=== PATIENT | male | born 1985 | race Caucasian/White ===

== ENCOUNTER 2018-06-04 12:42 | Emergency (ER) | payer OTHER ==
--- NOTE | 2018-06-04 14:07 | EDPHYS ---
Physician Documentation [facility] Name: Herson Owens Age: 33 yrs Sex: Male : 1985 Arrival Date: 06/04/2018 Time: 12:47 Bed 11 Private MD: ED Physician Javon Moreno HPI: 06/04 14:16 This 33 yrs old Male presents to ER via Ambulatory with complaints of Rash. snw 14:16 The patient's rash thought to be caused by Dermatitis. The rash is located on the body snw diffusely. The rash can be described as pt states he can't really see the rash but can feel it, extreme pruritis. Onset: The symptoms/episode began/occurred suddenly, 2 day(s) ago, and became worse and became persistent. Severity of symptoms: At their worst the symptoms were severe in the emergency department the symptoms are unchanged. Treatment given at home: none. The patient has not experienced similar symptoms in the past. The patient has not recently seen a physician. Historical: - Allergies: 12:50 No Known Allergies; aa5 - PMHx: 12:50 Anxiety; Hypertension; aa5 - PSHx: 12:50 right ankle; right leg with kike; right knee; aa5 - Immunization history:: Adult Immunizations unknown. - Social history:: Smoking status: Patient/guardian denies using tobacco. - Ebola Screening: : No symptoms or risks identified at this time. ROS: 14:16 Constitutional: Negative for fever, chills, and weight loss, Eyes: Negative for injury, snw pain, redness, and discharge, ENT: Negative for injury, pain, and discharge, Neck: Negative for injury, pain, and swelling, Cardiovascular: Negative for chest pain, palpitations, and edema, Respiratory: Negative for shortness of breath, cough, wheezing, and pleuritic chest pain, Abdomen/GI: Negative for abdominal pain, nausea, vomiting, diarrhea, and constipation, Back: Negative for injury and pain, : Negative for injury, bleeding, discharge, and swelling, MS/Extremity: Negative for injury and deformity, Neuro: Negative for headache, weakness, numbness, tingling, and seizure. 14:16 Skin: Positive for rash, of the generalized. Exam: 14:16 Constitutional: This is a well developed, well nourished patient who is awake, alert, snw and in no acute distress. Head/Face: Normocephalic, atraumatic. Eyes: Pupils equal round and reactive to light, extra-ocular motions intact. Lids and lashes normal. Conjunctiva and sclera are non-icteric and not injected. Cornea within normal limits. Periorbital areas with no swelling, redness, or edema. ENT: Nares patent. No nasal discharge, no septal abnormalities noted. Tympanic membranes are normal and external auditory canals are clear. Oropharynx with no redness, swelling, or masses, exudates, or evidence of obstruction, uvula midline. Mucous membranes moist. Neck: Trachea midline, no thyromegaly or masses palpated, and no cervical lymphadenopathy. Supple, full range of motion without nuchal rigidity, or vertebral point tenderness. No Meningismus. Chest/axilla: Normal chest wall appearance and motion. Nontender with no deformity. No lesions are appreciated. Cardiovascular: Regular rate and rhythm with a normal S1 and S2. No gallops, murmurs, or rubs. Normal PMI, no JVD. No pulse deficits. Respiratory: Lungs have equal breath sounds bilaterally, clear to auscultation and percussion. No rales, rhonchi or wheezes noted. No increased work of breathing, no retractions or nasal flaring. Abdomen/GI: Soft, non-tender, with normal bowel sounds. No distension or tympany. No guarding or rebound. No evidence of tenderness throughout. Back: No spinal tenderness. No costovertebral tenderness. Full range of motion. MS/ Extremity: Pulses equal, no cyanosis. Neurovascular intact. Full, normal range of motion. Neuro: Awake and alert, GCS 15, oriented to person, place, time, and situation. Cranial nerves II-XII grossly intact. Motor strength 5/5 in all extremities. Sensory grossly intact. Cerebellar exam normal. Normal gait. Psych: Awake, alert, with orientation to person, place and time. Behavior, mood, and affect are within normal limits. 14:16 Skin: Appearance: normal except for affected area, unable to see any skin abnormality except a few scattered insect bite appearing papules. Vital Signs: 12:50 BP 137 / 108; Pulse 93; Resp 18 S; Temp 98.6(TE); Pulse Ox 98% on R/A; Weight 117.93 kg aa5 (R); Height 5 ft. 8 in. (172.72 cm) (R); Pain 0/10; 12:50 Body Mass Index 39.53 (117.93 kg, 172.72 cm) aa5 MDM: 13:40 Patient medically screened. snw 14:20 Data reviewed: vital signs, nurses notes. Data interpreted: Pulse oximetry: on room air snw is 98 %. Interpretation: normal. Counseling: I had a detailed discussion with the patient and/or guardian regarding: the historical points, exam findings, and any diagnostic results supporting the discharge/admit diagnosis, the presence of at least one elevated blood pressure reading (>120/80) during this emergency department visit, the need for outpatient follow up, to return to the emergency department if symptoms worsen or persist or if there are any questions or concerns that arise at home. Special discussion: Based on the history and exam findings, there is no indication for further emergent testing or inpatient evaluation. I discussed with the patient/guardian the need to see the optical mechanic apprentice for further evaluation of the symptoms. I discussed with the patient/guardian the need to see the primary care provider for further evaluation of the symptoms. Administered Medications: 14:13 Drug: hydrOXYzine 50 mg Route: PO; iw Disposition: 15:35 Co-signature as Attending Physician, Javon Moreno MD I agree with the assessment and kdr plan of care. Disposition: 06/04/18 14:06 Discharged to Home. Impression: Irritant contact dermatitis. - Condition is Stable. - Discharge Instructions: Contact Dermatitis, Hypertension, Scabies, Adult. - Prescriptions for Elimite 5 % Topical Cream - apply 1 application by TOPICAL route one time Wash after 12 hours.; 60 gram. Pepcid 20 mg Oral Tablet - take 1 tablet by ORAL route every 12 hours for 10 days; 20 tablet. Zyrtec 10 mg Oral Tablet - take 1 tablet by ORAL route once daily As needed; 20 tablet. - Work release form, Medication Reconciliation Form, Thank You Letter, Antibiotic Education, Prescription Opioid Use form. - Follow up: Private Physician; When: 2 - 3 days; Reason: Recheck today's complaints, Continuance of care, Re-evaluation by your physician. Follow up: Emergency Department; When: As needed; Reason: Worsening of condition. Signatures: Javon Moreno MD MD kdr Therrien, Shelly, RADIOLOGY PRACTITIONER ASSISTANT-C RADIOLOGY PRACTITIONER ASSISTANT-Csnw Christin Yang, RN RN iw Ariela Parry, RN RN aa5 Corrections: (The following items were deleted from the chart) 14:22 14:06 06/04/2018 14:06 Discharged to Home. Impression: Irritant contact dermatitis. iw Condition is Stable. Forms are Medication Reconciliation Form, Thank You Letter, Antibiotic Education, Prescription Opioid Use. Follow up: Private Physician; When: 2 - 3 days; Reason: Recheck today's complaints, Continuance of care, Re-evaluation by your physician. Follow up: Emergency Department; When: As needed; Reason: Worsening of condition. snw
--- NOTE | 2018-06-04 14:07 | ER ---
Nurse's Notes [facility] Name: Herson Owens Age: 33 yrs Sex: Male : 1985 Arrival Date: 06/04/2018 Time: 12:47 Bed 11 Private MD: Diagnosis: Irritant contact dermatitis Presentation: 06/04 12:48 Presenting complaint: Patient states: rash that it's itchy to all four extremities that aa5 began 3 days ago. Transition of care: patient was not received from another setting of care. Onset of symptoms was May 2018. Risk Assessment: Do you want to hurt yourself or someone else? Patient reports no desire to harm self or others. Initial Sepsis Screen: Does the patient meet any 2 criteria? No. Patient's initial sepsis screen is negative. Does the patient have a suspected source of infection? No. Patient's initial sepsis screen is negative. Care prior to arrival: None. 12:48 Method Of Arrival: Ambulatory aa5 12:48 Acuity: LILLIAM 5 aa5 Historical: - Allergies: 12:50 No Known Allergies; aa5 - PMHx: 12:50 Anxiety; Hypertension; aa5 - PSHx: 12:50 right ankle; right leg with kike; right knee; aa5 - Immunization history:: Adult Immunizations unknown. - Social history:: Smoking status: Patient/guardian denies using tobacco. - Ebola Screening: : No symptoms or risks identified at this time. Screenin:20 Nutritional screening: No deficits noted. Fall Risk None identified. iw 14:22 Abuse screen: Denies threats or abuse. Denies injuries from another. Tuberculosis iw screening: No symptoms or risk factors identified. Assessment: 13:47 General: Appears in no apparent distress. Behavior is calm, cooperative. Pain: Denies iw pain. Neuro: Level of Consciousness is awake, alert, obeys commands. Vital Signs: 12:50 BP 137 / 108; Pulse 93; Resp 18 S; Temp 98.6(TE); Pulse Ox 98% on R/A; Weight 117.93 kg aa5 (R); Height 5 ft. 8 in. (172.72 cm) (R); Pain 0/10; 12:50 Body Mass Index 39.53 (117.93 kg, 172.72 cm) aa5 ED Course: 12:47 Patient arrived in ED. mr 12:49 Triage completed. aa5 12:49 Arm band placed on. aa5 13:25 Christin Yang, RN is Primary Nurse. iw 13:40 Saira Ashley FNP-C is [facility]. snw 13:40 Javon Moreno MD is Attending Physician. snw 14:00 Patient has correct armband on for positive identification. iw 14:20 No provider procedures requiring assistance completed. Patient did not have IV access iw during this emergency room visit. Administered Medications: 14:13 Drug: hydrOXYzine 50 mg Route: PO; iw Outcome: 14:06 Discharge ordered by . snw 14:21 Discharged to home ambulatory, with family. iw 14:21 Condition: good 14:21 Discharge instructions given to patient, family, Instructed on discharge instructions, follow up and referral plans. Demonstrated understanding of instructions, follow-up care, medications, Prescriptions given X 3. 14:22 Patient left the ED. iw Signatures: Saira Ashley FNP-C FABRIC WORKER LEADER-Jonah Mamie De La O mr Christin Yang, RN RN iw Ariela Parry RN RN aa5
[2018-06-04] MEDS ORDERED: hydrOXYzine HCl 25 MG TAB ONE (14:22)
== END 2018-06-04 14:22 | disposition home or self-care (01) ==
LOC: ER 12:42
DX: L24.9 Irritant contact dermatitis, unspecified cause (principal); I10 Essential (primary) hypertension
CPT/HCPCS: 99283

== ENCOUNTER 2021-07-30 10:01 | Emergency (ER) | payer OTHER ==
--- OUTSIDE RECORDS SUMMARY | 2021-07-30 10:05 | XMS REPORT | Continuity of Care Document ---
:1985 Author Organization [facility] t Address [address] [place] [address] Care Team Providers Name Role Phone CHING Attending Clinician Unavailable UNKNOWN Attending Clinician Unavailable Doctor Unassigned, Name Attending Clinician Unavailable Brice PÉREZ Y Attending Clinician Payers Payer Name Policy Type Policy Number Effective Date Expiration Date S lionel [facility] [id number] 2019 DUAL COMPLETE HMO 00:00:00 [facility] [id number] 2019 00:00:00 Problems Condition Condition Condition Status Onset Resolution Last Treating Co mments Source Name Details Category Date Date Treatment Clinician Date No known No known Disease Unive rs active active ity of problems problems [facility] Allergies, Adverse Reactions, Alerts Allergy Allergy Status Severity Reaction(s) Onset Inactive Treating Comm ents Source Name Type Date Date Clinician NO KNOWN Drug Active Univers ALLERGIE Class ity of S [facility] Social History Social Habit Start Date Stop Date Quantity Comments Source Sex Assigned At [facility] Tobacco use and 2019-08-04 2019-08-04 Never used [facility] exposure 00:00:00 00:00:00 [facility] Branch Smoking Status Start Date Stop Date Source Unknown if ever smoked [facility] Never smoker [facility] Medications Ordered Filled Start Stop Current Ordering Indication Dosage Frequency Signature Comments Components Source Medication Medication Date Date Medication? Clinician (SIG) Name Name naproxen 2018-09 Yes [id number] 550mg Take 1 Un gwendolyn sodium 1-20 tablet by ity of (ANAPROX 00:00: mouth 2 [place] DS) 550 mg 00 (two) Medical tablet times Branch daily with meals. methylPREDN 2018-09 Yes [id number] Take by Univers ISolone 1-20 mouth ity of (MEDROL, 00:00: SEE-INSTRU Les as PORT[place],) 4 mg 00 CTIONS. Medica l tablets follow Branch package directions naproxen 2018-09 Yes [id number] 550mg Take 1 Un gwendolyn sodium 1-20 tablet by ity of (ANAPROX 00:00: mouth 2 [place] DS) 550 mg 00 (two) Medical tablet times Branch daily with meals. methylPREDN 2018-09 Yes [id number] Take by Univers ISolone 1-20 mouth ity of (MEDROL, 00:00: SEE-INSTRU Les as [place],) 4 mg 00 CTIONS. Medica l tablets follow Branch package directions naproxen 2018-09 Yes [id number] 550mg Take 1 Un gwendolyn sodium 1-20 tablet by ity of (ANAPROX 00:00: mouth 2 [place] DS) 550 mg 00 (two) Medical tablet times Branch daily with meals. methylPREDN 2018-09 Yes [id number] Take by Univers ISolone 1-20 mouth ity of (MEDROL, 00:00: SEE-INSTRU Les as [place],) 4 mg 00 CTIONS. Medica l tablets follow Branch package directions FLUoxetine 2018-09 Yes [id number] 20mg Take 1 U nivers 20 mg 0-30 capsule by ity of capsule 00:00: mouth [place] 00 daily. Medical Branch FLUoxetine 2018-09 Yes [id number] 20mg Take 1 U nivers 20 mg 0-30 capsule by ity of capsule 00:00: mouth [place] 00 daily. Medical Branch FLUoxetine 2018-09 Yes [id number] 20mg Take 1 U nivers 20 mg 0-30 capsule by ity of capsule 00:00: mouth [place] 00 daily. Medical Branch FLUoxetine Yes [id number] 20mg Take 1 U nivers 20 mg 9-09 capsule by ity of capsule 00:00: mouth [place] 00 daily. Medical Branch lisinopril 2019- No 20mg Take 20 mg Univers 20 mg 05-21-06 by mouth ity of tablet 15:51: 00:00 daily. [place] 11 :00 Medical Branch lisinopril 2018- Yes [id number] 20mg Take 1 U nivers 20 mg 9-06 tablet by ity of tablet 00:00: mouth [place] 00 daily. Medical Branch buPROPion Yes [id number] 150mg Take 1 U nivers XL 9- tablet by ity of (WELLBUTRIN 00:00: mouth [place] XL) 150 mg 00 daily. Medical 24 hr Branch tablet lisinopril 2019- No [id number] 20mg Take 1 Univers 20 mg 05-21 tablet by ity of tablet 00:00: 00:00 mouth [place] 00 :00 daily. Medical Branch buPROPion 2019- No [id number] 150mg Take 1 Univers XL 05-21 tablet by ity of (WELLBUTRIN 00:00[place] XL[place] 150 mg 00 :00 daily. Medical 24 hr Branch tablet acetaminoph Yes [id number] 1{tbl} Take 1 Univers en-codeine 6-16 109 tablet by ity of (TYLENOL-CO 00:00: mouth [place] DEINE #3) 00 every 4 Medical 300-30 mg (four) Branch tablet hours as needed for Pain (scale 1-3). acetaminoph 2019- No [id number] 1{tbl} Take 1 Univers en-codeine 6-16 - 109 tablet by ity of (TYLENOL-CO 00:00[place] 00:[place] DEINE #3[place] 00 :00 every 4 Medical 300-30 mg (four) Branch tablet hours as needed for Pain (scale 1-3). ibuprofen 2016-09 Yes 800mg Take 1 Unive rs 800 mg 2-21 tablet by ity of tablet 00:00: mouth [place] 00 every 8 Medical (eight) Branch hours as needed (pain). ibuprofen 2016-09 2019- No 800mg Take 1 Univ ers 800 mg 2-21 - tablet by ity of tablet 00:00: 00:00 mouth [place] 00 :00 every 8 Medical (eight) Branch hours as needed (pain). Vital Signs Vital Name Observation Time Observation Value Comments Source BMI 2019-05-21 15:20:00 39.23 kg/m2 [facility] Oxygen saturation in 2019-05-21 15:20:00 98 /min [facility] Arterial blood by [facility] Pulse oximetry Branch Systolic blood 2019-05-21 15:20:00 146 mm[Hg] Univer sity of pressure [facility] Diastolic blood 2019-05-21 15:20:00 100 mm[Hg] Unive rsity of pressure [facility] Heart rate 2019-05-21 15:20:00 106 /min [facility] Body temperature 2019-05-21 15:20:00 36.22 Kim [facility] Respiratory rate 2019-05-21 15:20:00 18 /min [facility] Body weight 2019-05-21 15:20:[address] [facility] Procedures Procedure Date / Time Performed Performing Clinician Sourc e ASSIGNMENT OF BENEFITS 2019-05-21 15:11:47 Doctor Unassigned, No [facility] Encounters Start End Encounter Admission Attending Care Care Encounter Source Date/Time Date/Time Type Type Clinicians Facility Department ID 2020-06-16 2020-06-16 Outpatient R OTF [facility] [id number] Univers 11:20:00 11:20:00 ity of [facility] 2020-06-16 2020-06-16 Outpatient R OTF [facility] [id number] Univers 11:20:00 11:20:00 ity of [facility] 2020-06-13 2020-06-13 Outpatient R [facility] [id number] Univers 11:15:00 11:15:00 [id number] ity of [facility] 2020-06-13 2020-06-13 Outpatient R MONISHA, [facility] [id number] Univers 11:15:00 11:15:00 ATTENDING ity [facility] 2020-06-13 2020-06-13 Letter Doctor GARCIA [id number] Univers 00:00:00 00:00:00 (Out) Unassigned, OMAR [id number] ity of [facility] [id number] Les as [phone] [place] [address] Branch 2019-11-01 2019-11-01 Refill Soren Narvaez [id number] Univers 00:00:00 00:00:00 Y Pediatric [id number] [place]y [place] [id number] [facility] 2019-05-21 2019-05-21 Office Soren Narvaez [id number] Univers 10:13:37 10:56:23 Visit Y Pediatric [id number] ity [place] [id number] [address] 2019-05-21 2019-05-21 Orders Doctor RADHA [id number] Univers 00:00:00 00:00:00 Only Unassigned, OMAR [id number] ity of [facility] [id number] Les as [id number] [place] [address] Branch 2019-05-21 2019-05-21 Telephone Soren Narvaez [id number] Univers 00:00:00 00:00:00 Y Pediatric [id number] [place]y [place] [id number] [address] Results This patient has no known results.
[2021-07-30 10:49] LABS: Absolute Lymphocytes (CBC) 2.6 K/uL (0.7-4.9); Basophils % 1.2 % (0-1.3); Lymphocytes % 26.8 % (15.3-44.8); RBC Red Blood Cell Count 6.05 M/uL (4.33-5.43)
[2021-07-30 11:05] LABS: Bilirubin Direct 0.1 mg/dL (0-0.2); Bilirubin Total 0.5 mg/dL (0.2-1.0); Protein, Total 8.3 g/dL (6.4-8.2)
[2021-07-30 11:05] LABS: Urine Blood Trace-intact (Negative); Urine Glucose Negative (Negative); Urine Protein 2+ (Negative); Urine Specific Gravity 1.025 (1.005-1.030); Urine pH 5.5 (5.0-7.0)
--- NOTE | 2021-07-30 11:30 | RAD REPORT ---
EXAM DESCRIPTION: CTAbdomen Pelvis W Contrast - 07/30/2021 11:19 am CLINICAL HISTORY: right flank pain, frothy urine, uncontrolled HTN COMPARISON: No comparisons TECHNIQUE: CT of the abdomen and pelvis was performed. All CT scans are performed using dose optimization technique as appropriate and may include automated exposure control or mA/KV adjustment according to patient size. FINDINGS: Lower chest: No acute abnormality. Liver: Hepatic steatosis. Biliary: No biliary ductal dilatation. Stomach: No significant focal abnormality. Duodenum: No significant focal abnormality. Pancreas: No significant abnormality. Spleen: No significant abnormality. Adrenal: No suspicious lesions. Kidney/ureter: No hydronephrosis. No renal calculi. Retroperitoneum: No retroperitoneal adenopathy. Vascular: No aneurysm. Bowel: The proximal jejunum is thickened and hyperenhancing.Normal appendix. No bowel obstruction. Peritoneum: No ascites or free air. Bladder: Grossly unremarkable. Reproductive: No adnexal masses. Bones: No acute fracture. Other: n/a IMPRESSION: Proximal jejunal wall thickening and hyperenhancement concerning for the presence of ent eritis. No bowel obstruction. Normal appendix. No other acute findings are identified. Hepatic steato sis.
[2021-07-30 11:41] LABS: Urine Bacteria <20 /HPF (NONE SEEN); Urine RBC NONE SEEN /HPF (NONE SEEN)
--- NOTE | 2021-07-30 12:04 | EDPHYS ---
Physician Documentation [facility] Name: Herson Owens Age: 36 yrs Sex: Male : 1985 Arrival Date: 07/30/2021 Time: 10:03 Bed 20 Private MD: ED Physician Herrera Cook HPI: 07/30 10:28 This 36 yrs old Male presents to ER via Ambulatory with complaints of Flank rn Pain, Urinary Problem. 10:28 The patient complains of pain in the right mid back and right low back. The pain does rn not radiate. Onset: The symptoms/episode began/occurred 2 week(s) ago. Modifying factors: The symptoms are alleviated by nothing. the symptoms are aggravated by nothing. Associated signs and symptoms: Pertinent negatives: diarrhea, dizziness, dysuria, fever, urinary frequency, vomiting. Severity of pain: At its worst the pain was mild in the emergency department the pain is unchanged. The patient has not experienced similar symptoms in the past. The patient has been recently seen by a physician:. Patient states having frothy urine for the last few weeks. Also reports right-sided flank pain for about the same amount of time. States has uncontrolled blood pressure problems and takes medication but does not feel like his PCP is addressing the flank and urine problems. Not diabetic. No trauma. No hematuria. No fever. No weight loss.. Historical: - Allergies: 10:12 No Known Allergies; tw2 - Home Meds: 10:12 "unknown" [Active]; tw2 - PMHx: 10:12 Anxiety; Hypertension; tw2 - PSHx: 10:12 None; tw2 - Immunization history:: Client reports receiving the 2nd dose of the Covid vaccine, Flu vaccine is not up to date. - Social history:: Smoking status: Patient denies any tobacco usage or history of. Patient uses alcohol, occasionally. - Family history:: not pertinent. - Hospitalizations: : No recent hospitalization is reported. ROS: 10:28 Constitutional: Negative for fever, chills, and weight loss, Eyes: Negative for injury, rn pain, redness, and discharge, Neck: Negative for injury, pain, and swelling, Cardiovascular: Negative for chest pain, palpitations, and edema, Respiratory: Negative for shortness of breath, cough, wheezing, and pleuritic chest pain, Abdomen/GI: Negative for nausea, vomiting, diarrhea, and constipation, Back: Positive for flank pain : Negative for injury, bleeding, discharge, and swelling, MS/Extremity: Negative for injury and deformity, Skin: Negative for injury, rash, and discoloration, Neuro: Negative for headache, weakness, numbness, tingling, and seizure. 10:28 All other systems are negative. Exam: 10:28 Constitutional: This is a well developed, well nourished patient who is awake, alert, rn and in no acute distress. Head/Face: Normocephalic, atraumatic. Eyes: Periorbital areas with no swelling, redness, or edema. Cardiovascular: Regular rate and rhythm. No pulse deficits. Respiratory: No increased work of breathing, no retractions or nasal flaring. Abdomen/GI: Soft, non-tender Back: No spinal tenderness. No costovertebral tenderness. Full range of motion. Skin: Warm, dry MS/ Extremity: Pulses equal, no cyanosis, no edema Neuro: Awake and alert, GCS 15 Vital Signs: 10:09 BP 171 / 104; Pulse 93; Resp 17; Temp 97.6(TE); Pulse Ox 100% on R/A; Weight 117.93 kg tw2 (R); Height 5 ft. 9 in. (175.26 cm); Pain 2/10; 11:01 BP 178 / 98; Pulse 95; Resp 18; Temp 97.9; Pulse Ox 100% ; sl2 11:25 BP 181 / 107; Pulse 74; Resp 18; Temp 99.6; Pulse Ox 97% on R/A; sl2 10:09 Body Mass Index 38.39 (117.93 kg, 175.26 cm) tw2 MDM: 10:14 Patient medically screened. rn 12:01 Differential diagnosis: nephrolithiasis, pyelonephritis, UTI, nephritic syndrome, rn uncontrolled HTN, nephrotic syndrome. Data reviewed: vital signs, nurses notes, lab test result(s), radiologic studies, CT scan, and as a result, I will discharge patient. Counseling: I had a detailed discussion with the patient and/or guardian regarding: the historical points, exam findings, and any diagnostic results supporting the discharge/admit diagnosis, lab results, radiology results, the need for outpatient follow up, to return to the emergency department if symptoms worsen or persist or if there are any questions or concerns that arise at home. Special discussion: I discussed with the patient/guardian in detail that at this point there is no indication for admission to the hospital. It is understood, however, that if the symptoms persist or worsen the patient needs to return immediately for re-evaluation. Based on the history and exam findings, there is no indication for further emergent testing or inpatient evaluation. I discussed with the patient/guardian the need to see the primary care provider for further evaluation of the symptoms. Nephrology. ED course: Mild proteinuria and slight decrease in GFR, no acute findings in CT abdomen other than possible enteritis which patient denies nausea or diarrhea. Will dc home with nephrology f/u for further w/u and BP management. . 12:01 Counseling: I had a detailed discussion with the patient and/or guardian regarding: the rn presence of at least one elevated blood pressure reading (>120/80) during this emergency department visit. Special discussion: I have referred the patient to see his PCP for further evaluation of high blood pressure. 07/30 10:26 Order name: Basic Metabolic Panel rn 07/30 10:26 Order name: CBC with Diff rn 07/30 10:26 Order name: Hepatic Function; Complete Time: 11:09 rn 07/30 10:26 Order name: Lipase; Complete Time: 11:09 rn 07/30 10:26 Order name: Urine Microscopic Only; Complete Time: 11:42 rn 07/30 10:26 Order name: Basic Metabolic Panel; Complete Time: 11:09 EDMS 07/30 10:26 Order name: IV Saline Lock; Complete Time: 10:38 rn 07/30 10:26 Order name: Labs collected and sent; Complete Time: 10:38 rn 07/30 10:26 Order name: CT Abd/Pelvis - IV Contrast Only; Complete Time: 11:42 rn 07/30 10:26 Order name: Urine Dipstick-Ancillary (obtain specimen); Complete Time: 11:06 rn 07/30 10:26 Order name: CBC with Automated Diff; Complete Time: 11:05 EDMS 07/30 11:04 Order name: Urine Dipstick-Ancillary; Complete Time: 11:05 EDMS Administered Medications: No medications were administered Disposition Summary: 07/30/21 12:03 Discharge Ordered Location: Home rn Problem: an ongoing problem rn Symptoms: have improved rn Condition: Stable rn Diagnosis - Essential (primary) hypertension rn - Proteinuria, unspecified rn Followup: rn - With: Melly Aguilar MD - When: As needed - Reason: Recheck today's complaints, Re-evaluation by your physician Discharge Instructions: - Discharge Summary Sheet rn - Hypertension, Adult rn - Proteinuria rn - Managing Your Hypertension rn Forms: - Medication Reconciliation Form rn - Thank You Letter rn - Antibiotic director external communications - Prescription Opioid Use rn Signatures: Dispatcher [employer] EDHerrera Galan MD MD rn Wise, Tara, RN RN tw2 Corrections: (The following items were deleted from the chart) 10:38 10:28 Constitutional: This is a well developed, well nourished patient who is awake, rn alert, and in no acute distress. Head/Face: Normocephalic, atraumatic. Eyes: Periorbital areas with no swelling, redness, or edema. Cardiovascular: Regular rate and rhythm. No pulse deficits. Respiratory: No increased work of breathing, no retractions or nasal flaring. Abdomen/GI: Soft, non-tender Skin: Warm, dry MS/ Extremity: Pulses equal, no cyanosis Neuro: Awake and alert, GCS 15 rn 10:38 10:28 Constitutional: This is a well developed, well nourished patient who is awake, rn alert, and in no acute distress. Head/Face: Normocephalic, atraumatic. Eyes: Periorbital areas with no swelling, redness, or edema. Cardiovascular: Regular rate and rhythm. No pulse deficits. Respiratory: No increased work of breathing, no retractions or nasal flaring. Abdomen/GI: Soft, non-tender Skin: Warm, dry MS/ Extremity: Pulses equal, no cyanosis Neuro: Awake and alert, GCS 15 rn 10:38 10:28 Constitutional: This is a well developed, well nourished patient who is awake, rn alert, and in no acute distress. Head/Face: Normocephalic, atraumatic. Eyes: Periorbital areas with no swelling, redness, or edema. Cardiovascular: Regular rate and rhythm. No pulse deficits. Respiratory: No increased work of breathing, no retractions or nasal flaring. Abdomen/GI: Soft, non-tender Back: No spinal tenderness. No costovertebral tenderness. Full range of motion. Skin: Warm, dry MS/ Extremity: Pulses equal, no cyanosis Neuro: Awake and alert, GCS 15 rn
--- NOTE | 2021-07-30 12:04 | ER ---
Nurse's Notes [facility] Name: Herson Owens Age: 36 yrs Sex: Male : 1985 Arrival Date: 07/30/2021 Time: 10:03 Bed 20 Private MD: Diagnosis: Essential (primary) hypertension;Proteinuria, unspecified Presentation: 07/30 10:09 Chief complaint: Patient states: they said there was proteins. my body is telling me tw2 stuff and i have been ignoring it. the urine has been progressively getting frothy. the pain is lower right abdomen Spouse and/or significant other states: pain in his RIGHT lower abdomen and frothy urine for a couple of weeks. Coronavirus screen: At this time, the client does not indicate any symptoms associated with coronavirus-19. Ebola Screen: Patient denies travel to an Ebola-affected area in the 21 days before illness onset. Initial Sepsis Screen: Does the patient meet any 2 criteria? HR > 90 bpm. No. Patient's initial sepsis screen is negative. Does the patient have a suspected source of infection? No. Patient's initial sepsis screen is negative. Risk Assessment: Do you want to hurt yourself or someone else? Patient reports no desire to harm self or others. Onset of symptoms was July 30, 2021. 10:09 Method Of Arrival: Ambulatory tw2 10:09 Acuity: LILLIAM 3 tw2 Triage Assessment: 10:13 General: Appears in no apparent distress. obese, well groomed, Behavior is cooperative, tw2 appropriate for age, anxious. Pain: Complains of pain in right lower quadrant. : Reports it is very frothy and 2 doctors have said there is protein in it and never did anything about it. Historical: - Allergies: 10:12 No Known Allergies; tw2 - Home Meds: 10:12 "unknown" [Active]; tw2 - PMHx: 10:12 Anxiety; Hypertension; tw2 - PSHx: 10:12 None; tw2 - Immunization history:: Client reports receiving the 2nd dose of the Covid vaccine, Flu vaccine is not up to date. - Social history:: Smoking status: Patient denies any tobacco usage or history of. Patient uses alcohol, occasionally. - Family history:: not pertinent. - Hospitalizations: : No recent hospitalization is reported. Screenin:01 Abuse screen: Denies threats or abuse. Nutritional screening: No deficits noted. sl2 Tuberculosis screening: No symptoms or risk factors identified. Never had TB. Possible symptoms: None Risk factors: None. Fall Risk None identified. Assessment: 10:41 General: Appears in no apparent distress. obese, well groomed, well developed, Behavior sl2 is calm, cooperative, appropriate for age, Reports frothy urine. 11:01 Pain: Complains of pain in right low back and right mid back and abdomen and right sl2 lower quadrant. Neuro: No deficits noted. Cardiovascular: No deficits noted. Respiratory: No deficits noted. GI: No deficits noted. Abdomen is round obese, Bowel sounds present X 4 quads. Reports lower abdominal pain. : No deficits noted. EENT: No deficits noted. Derm: No deficits noted. Musculoskeletal: No deficits noted. Vital Signs: 10:09 BP 171 / 104; Pulse 93; Resp 17; Temp 97.6(TE); Pulse Ox 100% on R/A; Weight 117.93 kg tw2 (R); Height 5 ft. 9 in. (175.26 cm); Pain 210; 11:01 BP 178 / 98; Pulse 95; Resp 18; Temp 97.9; Pulse Ox 100% ; sl2 11:25 BP 181 / 107; Pulse 74; Resp 18; Temp 99.6; Pulse Ox 97% on R/A; sl2 10:09 Body Mass Index 38.39 (117.93 kg, 175.26 cm) tw2 ED Course: 10:03 Patient arrived in ED. as 10:12 Triage completed. tw2 10:13 Arm band placed on. tw2 10:14 Herrera Cook MD is Attending Physician. rn 10:20 Gillian Jaramillo, FELISHA is Primary Nurse. sl2 10:30 Inserted saline lock: 20 gauge in left antecubital area, using aseptic technique. Blood sl2 collected. 11:01 Patient has correct armband on for positive identification. Placed in gown. Call light sl2 in reach. 11:03 No provider procedures requiring assistance completed. IV is patent, with good blood sl2 return. 11:06 Urine Microscopic Only Sent. mh5 11:06 Basic Metabolic Panel Sent. 5 11:06 CBC with Diff Sent. mh5 11:[address] via wheelchair. sl2 11:20 CT Abd/Pelvis - IV Contrast Only In Process Unspecified. EDMS 11:[address] back from [address]. sl2 12:03 Melly Aguilar MD is Referral Physician. rn 12:19 IV discontinued, intact, bleeding controlled, No redness/swelling at site. 5 Administered Medications: No medications were administered Outcome: 12:03 Discharge ordered by MD. rn 12:18 Discharged to home ambulatory. [facility] 12:18 Condition: stable 12:18 Discharge instructions given to patient, Instructed on discharge instructions, follow up and referral plans. Demonstrated understanding of instructions, follow-up care. 12:19 Patient left the ED. 5 Signatures: Dispatcher [employer] EDNY Nieves Love Roman, MD MD rn Wise, Tara, RN RN 2 Mamie Love [facility] Gillian Jaramillo RN RN 2 Lisa Caban RN RN 5 Corrections: (The following items were deleted from the chart) 11:02 10:41 General: Appears in no apparent distress. obese, well groomed, well developed, sl2 Behavior is calm, cooperative, appropriate for age, Smells of Reports frothy urine sl2 11:33 11:01 BP 168 / 98; Pulse 95bpm; Resp 18bpm; Pulse Ox 100%; Temp 97.9F; sl2 sl2
[2021-07-30 12:36] VITALS: BP 181/107; TEMP 99.6; O2SAT 97
== END 2021-07-30 12:19 | disposition home or self-care (01) ==
LOC: ER 10:01
DX: R80.9 Proteinuria, unspecified (principal); I10 Essential (primary) hypertension
CPT/HCPCS: 85025; 80048; 36415; 80076; 83690; 74177; 99284; Q9967; 81003; 81015